=== PATIENT | female | born 1995 | race Caucasian/White ===

== ENCOUNTER 2016-12-11 12:12 | Emergency (ER) | payer SELFPAY ==
[~2016-12-11] VITALS: Ht 175.3 cm; Wt 68.8 kg
[2016-12-11] MEDS ORDERED: PHENAZOPYRIDINE 200 MG TABLET PO ONE (13:00)
[2016-12-11 13:32] LABS: PATH.CAST-FLAG NOT PRESENT; SPERM-FLAG NOT PRESENT; SRC-FLAG NOT PRESENT; XTAL-FLAG NOT PRESENT; YLC-FLAG NOT PRESENT
[2016-12-11 14:01] LABS: HCG UR OBC PASS
[2016-12-11] MEDS ORDERED: CEFTRIAXONE 1,000 MG IM ONE (14:30)
[2016-12-11] MEDS ORDERED: LIDOCAINE 1%, 20ML ONE (15:08)
[2016-12-11] MEDS ORDERED: PHENAZOPYRIDINE 200 MG TABLET ONE (15:08)
[2016-12-11] MEDS ORDERED: CEFTRIAXONE 1,000 MG ONE (15:08)
[2016-12-11 15:14] VITALS: BP 106/58
== END 2016-12-11 15:32 | disposition home or self-care (01) ==
LOC: ED 15:26
DX: N30.01 Acute cystitis with hematuria (principal)
CPT/HCPCS: 81001; 81025; 87077; 87086; 87186; 96372; 99284; J0696